=== PATIENT | male | born 1945 | race Caucasian/White ===

== ENCOUNTER → 2016-07-09 | Outpatient (CLI) | payer MEDICARE, BC ==
--- NOTE | 2016-07-09 20:24 | BD ---
EXAMINATION TYPE: MG DEXA axial skeleton. DATE OF EXAM: 07/09/2016 3:57 PM COMPARISON: NONE CLINICAL HISTORY: 70-year-old male osteoporosis Height: 131.9 Weight: 63 FRAX RISK QUESTIONS: Alcohol (3 or more units per day): NO Family History (Parent hip fracture): NO Glucocorticoids (More than 3mos): (Ex: prednisone, prednisolone, methylprednisolone, dexamethasone, and hydrocortisone). History of Fracture in Adulthood: NO Secondary Osteoporosis: 1. Type 1 Diabetes: TYPE 2 ON INSULIN 2. Hyperthyroidism: NO 3. Menopause before 45: N/A 4. Malnutrition: NO 5. Chronic liver disease: NO Rheumatoid Arthritis: NO Current Tobacco Use: NO RISK FACTORS HISTORY OF: Hip Fracture (Right/Left): NO Spine Fracture: NO History of Wrist Fracture: NO Surgery to Spine/Hip(right/left)/Wrist (right/left): BILATERAL HIPS When: L 02-17-12 RT Family History of Osteoporosis: YES Active: YES Diet low in dairy products/other sources of calcium: YES Lost more than 2 inches in height since high school: UNSURE DUE TO HIP SURGERY Frequent falls: NO Poor Health: NO Adrenal Insufficiency: NO MEDICATIONS: DIABETIC MEDS, ATORVASTATIN, CLOPIDOGREL, IMDUR, LISINOPRIL, PANTOPRAZOLE, TAMSULOSIN, F INASTERIDE Prednisone or other steroids: PREDNISONE How Lon MONTHS Additional History: EXAM MEASUREMENTS: Bone mineral densitometry was performed using the [employer] System. Bone mineral density as measured about the Lumbar spine is: ----- L1-L4(G/cm2): 0.795 T Score Values are as follows: ----- L2: -3.0 ----- L3: -3.4 ----- L4: -2.7 ----- L1-L4: -3.2 Bone mineral density has: DECREASED -1.9 % since study of: 04.14.2012 IMPRESSION: Osteoporosis (T Score less than -2.5) as noted by T Score values at the lumbar spine. There is increased fracture risk and therapy is usually indicated based on age. Re-Screen 1-2 years. NOTE: T-SCORE=SD OF THE YOUNG ADULT MEAN.
== END | disposition home or self-care (01) ==
LOC: RADBDWWP 15:34
PROVIDERS: ATTEND Family Medicine
DX: M81.0 Age-related osteoporosis without current pathological fracture (principal)
CPT/HCPCS: 77080

== ENCOUNTER 2017-06-09 18:07 | Inpatient (IN) | payer MEDICARE, BC ==
[2017-06-09 18:33] LABS: Glucose,Whole Blood 107 mg/dL (75-99)
[2017-06-09] MEDS ORDERED: HEPARIN SODIUM,PORCINE 5,000 UNIT/ML 1 ML VIAL IV PRN (19:48)
[2017-06-09] MEDS ORDERED: HEPARIN SODIUM,PORCINE 5,000 UNIT/ML 1 ML VIAL IV ONE (19:48)
[2017-06-09] MEDS ORDERED: HEPARIN SOD,PORK IN 0.45% NACL 25,000 UNIT in 0.45% NACL 1 500ML.BAG IV SCH (20:00)
[2017-06-09 20:36] LABS: Basophils % (A) 0 %; Eosinophils # (A) 0.2 k/uL (0-0.7); Eosinophils % (A) 3 %; HCT 38.1 % (39.0-53.0); HGB 12.3 gm/dL (13.0-17.5); Lymphocytes # (A) 1.4 k/uL (1.0-4.8); Lymphocytes % (A) 21 %; MCH 27.5 pg (25.0-35.0); MCHC 32.3 g/dL (31.0-37.0); Mean Platelet Volume 6.9; Monocytes # (A) 0.5 k/uL (0-1.0); Monocytes % (A) 7 %; Neutrophils # (A) 4.5 k/uL (1.3-7.7); Neutrophils % (A) 67 %; Platelet Count 205 k/uL (150-450); RBC 4.49 m/uL (4.30-5.90); RDW 13.3 % (11.5-15.5); WBC 6.8 k/uL (3.8-10.6)
[2017-06-09 20:43] LABS: INR 1.1 (<1.2); Partial Thromboplastin Time 64.4 sec (22.0-30.0); Prothrombin Time 10.4 sec (9.0-12.0)
[2017-06-09 20:49] LABS: Anion Gap 7 mmol/L; Blood Urea Nitrogen 16 mg/dL (9-20); Calcium 8.4 mg/dL (8.4-10.2); Carbon Dioxide 27 mmol/L (22-30); Chloride 95 mmol/L (98-107); Glucose 135 mg/dL (74-99); Potassium 4.2 mmol/L (3.5-5.1); Sodium 129 mmol/L (137-145)
[2017-06-09 20:55] LABS: Glucose,Whole Blood 169 mg/dL (75-99)
[2017-06-09] MEDS: ATORVASTATIN 20 MG TAB PO SCH (21:21)
[2017-06-09] MEDS: METOPROLOL TARTRATE 25 MG TAB PO SCH (21:21)
[2017-06-09] MEDS: INSULIN ASPART 100 UNIT/ML 1 ML 10 ML VIAL SQ SCH (21:27)
[2017-06-09] MEDS: PIRFENIDONE 801 MG PO SCH (21:28)
--- NOTE | 2017-06-10 00:45 | XR ---
EXAMINATION TYPE: XR chest 1V portable DATE OF EXAM: 06/10/2017 COMPARISON: NONE HISTORY: Chest pain short of breath TECHNIQUE: Single frontal view of the chest is obtained. FINDINGS: Heart is probably enlarged. There is some pulmonary vascular congestion. Pulmonary vascula rity is difficult to evaluate because of the extensive interstitial lung disease. Thoracic aorta is a theromatous. There are chest leads. There are sternal wires. IMPRESSION: Advanced foamy fibrosis without change compared to old exam. Possible mild heart failure . This is unchanged.
[2017-06-10] MEDS ORDERED: ALPRAZolam 0.25 MG TAB PO PRN (01:05)
[2017-06-10] MEDS ORDERED: NITROGLYCERIN SL TABS 0.4 MG TAB SUBLINGUAL PRN (01:05)
--- NOTE | 2017-06-10 03:26 | HP ---
HISTORY AND PHYSICAL I am covering for Dr. Hal Van. DATE OF SERVICE: 06/09/17 HISTORY OF PRESENT ILLNESS: This 71-year-old gentleman with past medical history of pulmonary fibrosis, history of CAD, diabetes and hypertension, was admitted to [facility] with complaints of chest pain to [facility], acute non ST elevation myocardial infarction was suspected and the patient was transferred to [facility] for further evaluation and possible cardiac catheterization at this time. There is no history of fever , rigors or chills. No history of headache, loss of consciousness or seizures. As mentioned, the patient also had kyphoscoliosis and as well as pulmonary fibrosis. Also the patient monitored by Dr. Handy in the outpatient setting. A chest x-ray done on admission which was reviewed personally by me showed bilateral lower lobe lesions suggestive of chronic pulmonary fibrosis, possibly. PAST MEDICAL HISTORY: History of CAD, history of diabetes mellitus, hypertension, hyperlipidemia, DJD, history of cholecystectomy, CAD, CABG stent. MEDICATIONS: Prior to admission include: 1. Lopressor 25 mg p.o. t.i.d. 2. Prednisone 10 mg. 3. Flomax 0.4 b.i.d. 5. Protonix 40 mg. 6. Nitrostat 0.4 p.r.n. 7. Multivitamins one p.o. daily. 8. Zestril 2.5 daily. 9. Imdur 30 mg. 10.NovoLog a.c. and q.h.s. 11.Lantus 19 units subcu daily. 12.Proscar 5 mg p.o. daily. 13.Plavix 75 mg p.o. daily. 14.Celexa 20 mg p.o. daily. 15.Lipitor 20 mg q.h.s. 17.Xanax 0.5 b.i.d. p.r.n. ALLERGIES: None. FAMILY HISTORY: History of CHF, diabetes in the family. SOCIAL HISTORY: No history of alcohol. Previous history of smoking. REVIEW OF SYSTEMS: ENT: No diminished vision or hearing. Cardiovascular: As mentioned earlier. Respiratory: As mentioned earlier. GI no nausea or vomiting. : No dysuria. NERVOUS SYSTEM: No numbness or weakness. Allergy/Immunology: No asthma or hayfever. Musculoskeletal as mentioned earlier. Hematology/Oncology: No history of anemia. Endocrine: Diabetes mellitus type 2. Constitutional: As mentioned earlier. Dermatology: Negative. Rheumatology: Negative. Psychiatric: As mentioned earlier. PHYSICAL EXAMINATION: Alert and oriented x3. The pulse is 81, blood pressure 109/59, respiration 18, temperature 97.2, pulse ox 94% on 4 L. HEENT: Conjunctivae normal. Oral mucosa moist. Neck is no jugular venous distention. No carotid bruit. No lymph node enlargement. Cardiovascular: S1, S2 muffled. No S3, no S4. RESPIRATORY: Breath sounds diminished in the bases. Scattered rhonchi and crackles. ABDOMEN: Soft. Otherwise chest is emphysematous. Otherwise crackles in the bilateral posterior part. Expiratory wheezing also present. Abdomen: Soft, nontender. No mass palpable. Legs: No edema and no swelling. Nervous system: Higher functions as mentioned earlier, moves all 4 limbs, no focal motor or sensory deficits. Lymphatics: No lymph nodes palpable in the neck, axillae or groin. Skin: No ulcer, rash or bleeding. LABS: At this time shows WBC of 6.9, hemoglobin 12.3 and glucose 135, sodium 129. ASSESSMENT: 1. Chest pain possible acute non ST-segment elevation myocardial infarction. 2. History of coronary artery disease, coronary artery bypass grafting, stent. 3. Pulmonary fibrosis. 4. Hyponatremia. 5. History of diabetes mellitus type 2. 6. History of gastroesophageal reflux disease. 7. Hypertension. 8. Hyperlipidemia. 9. History of prostate disorder. 10.Chronic hypoxic respiratory failure on 4 L nasal cannula. 11.History of myasthenia gravis in remission since 1982. 12.Degenerative joint disease. 13.Carotid artery disease. 14.Hyperlipidemia. 15.History of cholecystectomy. RECOMMENDATION AND DISCUSSION: In this 71-year-old gentleman who presented with multiple complex medical issues , we will monitor the patient closely. Continue the rest of the home medications. Monitor IV heparin. Cardiology consultation, possible cardiac catheterization. Otherwise, we will resume the home medications. Continue to monitor. Guarded prognosis because of multiple complex medical issues. Further recommendations to follow. MMODL / IJN: [id number] / MTDD
[2017-06-10] MEDS: SODIUM CHLORIDE 0.9% 1,000 ML IV SCH (06:13)
[2017-06-10] MEDS: METOPROLOL TARTRATE 25 MG TAB PO SCH ×3 (06:14→20:58)
[2017-06-10] MEDS: CLOPIDOGREL 75 MG TAB PO SCH (06:14)
[2017-06-10] MEDS: LISINOPRIL 2.5 MG TAB PO SCH (06:14)
[2017-06-10] MEDS: INSULIN ASPART 100 UNIT/ML 1 ML 10 ML VIAL SQ SCH ×4 (06:15→20:56)
[2017-06-10] MEDS: ASPIRIN 81 MG PO SCH (06:15)
[2017-06-10] MEDS: PANTOPRAZOLE 40 MG TABLET PO SCH (06:15)
[2017-06-10] MEDS: ATORVASTATIN 20 MG TAB PO SCH (06:15)
[2017-06-10 06:39] LABS: Glucose,Whole Blood 133 mg/dL (75-99)
[2017-06-10 06:40] LABS: Basophils % (A) 0 %; Eosinophils # (A) 0.3 k/uL (0-0.7); Eosinophils % (A) 4 %; HCT 40.3 % (39.0-53.0); HGB 13.9 gm/dL (13.0-17.5); Lymphocytes # (A) 1.5 k/uL (1.0-4.8); Lymphocytes % (A) 21 %; MCHC 34.3 g/dL (31.0-37.0); MCV 84.5 fL (80.0-100.0); Mean Platelet Volume 6.6; Monocytes # (A) 0.5 k/uL (0-1.0); Monocytes % (A) 7 %; Neutrophils # (A) 4.7 k/uL (1.3-7.7); Neutrophils % (A) 66 %; Platelet Count 242 k/uL (150-450); RBC 4.77 m/uL (4.30-5.90); WBC 7.2 k/uL (3.8-10.6)
[2017-06-10 07:03] LABS: Anion Gap 8 mmol/L; Blood Urea Nitrogen 14 mg/dL (9-20); Calcium 8.8 mg/dL (8.4-10.2); Carbon Dioxide 29 mmol/L (22-30); Chloride 99 mmol/L (98-107); Glucose 125 mg/dL (74-99); Potassium 4.8 mmol/L (3.5-5.1); Sodium 136 mmol/L (137-145)
[2017-06-10] MEDS ORDERED: LIDOCAINE 2% INJ 20 MG/ML (20 ML MDV) ONE (07:13)
[2017-06-10] MEDS ORDERED: IV FLUID CONTINUATION 400 ML IV ONE (07:20)
[2017-06-10] MEDS ORDERED: fentaNYL (PF) 50 MCG/ML 2 ML AMP ONE (07:42)
[2017-06-10] MEDS ORDERED: fentaNYL (PF) 50 MCG/ML 2 ML AMP IV ONE (07:46)
[2017-06-10] MEDS ORDERED: LIDOCAINE 2% INJ 20 MG/ML SQ ONE (07:49)
[2017-06-10] MEDS ORDERED: IOPAMIDOL-370 125ML BTL INJ ONE (08:08)
[2017-06-10] MEDS ORDERED: RX INFO: IV CONTRAST WAS GIVEN 1 EACH MISC MISCELLANE PRN (08:31)
[2017-06-10] MEDS ORDERED: SODIUM CHLORIDE 0.9% 1,000 ML IV SCH (08:45)
[2017-06-10] MEDS ORDERED: ISOSORBIDE MONONITRATE ER 30 MG TAB.ER.24H PO SCH (09:00)
--- NOTE | 2017-06-10 09:51 | CC ---
CARDIAC CATHETERIZATION REPORT Mr. Segura is a 71-year-old male with known history of hypertension, hyperlipidemia, diabetes mellitus, history of coronary artery disease, status post coronary artery bypass grafting and subsequent percutaneous revascularization with , history of pulmonary fibrosis, who presented to [facility] with symptoms of progressive dyspnea and episodes of chest discomfort with minimal elevation of troponin. In view of that and after evaluation by Dr. Fercho Campos, recommendation made regarding cardiac catheterization. The procedure as well as the risks and complications were discussed with the patient who is in full understanding and agreement. PROCEDURE: Patient was brought to the blood bank laboratory professional in the fasting semi-sedated state after receiving fentanyl and Benadryl. He was draped and prepped in conventional fashion using Xylocaine anesthesia in the Seldinger technique, a 6-Georgian sheath was introduced in the left femoral artery. Selective right and left angiography performed using a 6- Georgian 4 bend right and left America catheter. Multiple views of the coronary artery including hemiaxial view was obtained. The 6-Georgian right America catheter was used to cannulate the saphenous vein graft as well as MERAZ to LAD. Images of the grafts were obtained. Following that, a 6-Georgian tight pigtail catheter was introduced in the left ventricle and a 30- degree RIGGS view of the left ventricle was obtained. Following that, the catheter and sheaths were removed. Hemostasis was obtained with deployment of Angio-Seal. There was no immediate complication. Patient is returned to his room in stable condition. FINDINGS: FLUOROSCOPY: There is severe calcification involving all the coronary arteries. LEFT MAIN: This is a short size vessel bifurcating in left circumflex and left anterior descending artery. Left main coronary artery has no evidence of high-grade stenosis. LEFT ANTERIOR DESCENDING ARTERY: This vessel is heavily calcified, has 80% to 90% stenosis at the ostium. Subsequently is totally occluded at the takeoff of the first septal technical support engineer with no significant antegrade flow and the first diagonal branch is heavily calcified and small in caliber. It is a branching vessel that one of the branches is totally occluded. The second one has a 90% stenosis. LEFT CIRCUMFLEX: This vessel is nondominant, has a 99% stenosis at the ostium, heavily calcified throughout its course with diffuse intimal disease. The obtuse marginal branches are subtotally occluded. RIGHT CORONARY ARTERY: This vessel is totally occluded in the mid segment with no significant antegrade flow. COLLATERALS: There are small collaterals from the left coronary system toward the right PDA. MERAZ to LAD: The distal anastomotic site is patent. The flow into the LAD is brisk. There is no evidence of high-grade stenosis. SAPHENOUS VEIN GRAFT TO THE OBTUSE MARGINAL BRANCH: This graft is totally occluded proximally. SAPHENOUS VEIN GRAFT TO DIAGONAL BRANCH: This graft is totally occluded proximally. SAPHENOUS VEIN GRAFT TO THE RIGHT CORONARY ARTERY. This graft is totally occluded proximally. LEFT VENTRICULOGRAM: The left ventriculogram is performed in 30-degree RIGGS view and revealed mild mid anterior wall hypokinesis. Ejection fraction is estimated 45% to 50%. There was no significant mitral regurgitation. HEMODYNAMICS: There was no gradient across the aortic valve. The left ventricular end- diastolic pressure was 14 to 18 mmHg. CONCLUSION: 1. Heavily calcified coronary arteries. 2. Severe triple-vessel coronary artery disease. 3. Patent MERAZ to left anterior descending artery. 4. Chronic occluded saphenous vein graft to diagonal branch, obtuse marginal branch, and right coronary artery. 5. Mildly impaired left ventricular systolic function. RECOMMENDATION: In view of finding anatomy, I recommend to continue medical therapy. The patient is not a candidate for percutaneous revascularization. Those findings and recommendation were discussed with the patient and his family who are in full understanding and agreement. Duration of procedure 23 minutes. MMODL / IJN: [id number] /
--- NOTE | 2017-06-10 09:51 | LTR ---
June 10, 2017 Re: Ari Segura Dear Dr. Van: I had the opportunity to perform cardiac catheterization on Mr. Segura at [facility] on the 10 of June and a full copy of the procedure note will be forwarded to you. In brief, he was found to have severe triple-vessel coronary artery disease with severely calcified coronary arteries and a patent MERAZ to LAD with occluded saphenous vein grafts. Based on those findings, I have recommended to maximize his medical therapy and I do not feel that he is a candidate for any intervention. Thank you again for allowing me the opportunity to participate in his care. Please feel free to call for any questions. Sincerely yours, MD BRISEIDA Jacques / VERNON: [id number] /
[2017-06-10] MEDS: CITALOPRAM HYDROBROMIDE 20 MG TAB PO SCH (09:56)
[2017-06-10] MEDS: INSULIN DETEMIR 100 UNIT/ML 10 ML VIAL SQ SCH (09:56)
[2017-06-10] MEDS: FINASTERIDE 5 MG TAB PO SCH (09:56)
[2017-06-10] MEDS: PIRFENIDONE 801 MG PO SCH ×3 (09:57→20:58)
[2017-06-10] MEDS: ISOSORBIDE MONONITRATE ER 60 MG TAB.ER.24H PO SCH (09:57)
[2017-06-10] MEDS: predniSONE 10 MG TAB PO SCH (09:58)
[2017-06-10] MEDS: TAMSULOSIN 0.4 MG CAP.ER.24H PO SCH ×2 (09:59→20:56)
[2017-06-10] MEDS ORDERED: ACETAMINOPHEN TAB 325 MG TAB PO PRN (11:40)
[2017-06-10 11:49] LABS: Glucose,Whole Blood 212 mg/dL (75-99)
[2017-06-10] MEDS ORDERED: MULTIVITAMINS, THERA 1 EACH TAB PO SCH (12:00)
--- NOTE | 2017-06-10 15:30 | P.CNPUL ---
History of Present Illness Consult date: 06/10/17 Reason for consult: dyspnea, pulmonary fibrosis History of present illness: 71-year-old male patient with known history of IPF maintained on Esbriet therapy initiated in September 2014. The patient has been developing progressive loss in his lung capacity over the years and he is been experiencing exertional dyspnea and cough. The patient sees me on a regular basis in the office. The patient was last hospitalized in middle of February for an acute pulmonary fibrosis exacerbation he was treated with systemic steroids and he was discharged home. Note that he has developed a drop in his FVC in January 2017 which is down to 42% of predicted. He is on oxygen therapy at all times at 4 L a minute nasal cannula. He has exertional dyspnea and he desaturates easily and it's taking longer time for him to recover from his oxygen desaturations. He has chronic hypoxic respiratory failure. He also has coronary artery disease and he is undergone previous coronary artery bypass surgery. He is diabetic. He presented to [facility] because of worsening shortness of breath and chest pain. The patient ruled in for acute non-ST segment elevation myocardial infarction. He got transferred to [facility] where he underwent a cardiac catheterization and he was found to have heavily calcified coronary arteries, severe triple-vessel coronary artery disease, patent MERAZ to LAD, chronically occluded saphenous vein graft to diagonal branch, O2 is marginal branch and right coronary artery. His left a ejection fraction has been preserved based on physical cardiac grams. The patient is currently free of any chest pain. Chest x-rays consistent with IPF. No sputum production. No hemoptysis been no swelling lower extremities. Review of Systems Constitutional: Reports fatigue, Reports weakness Eyes: denies blurred vision, denies bulging eye, denies decreased vision Ears: deny: decreased hearing, ear discharge, earache, tinnitus Ears, nose, mouth and throat: Denies headache, Denies sore throat Cardiovascular: Reports decreased exercise tolerance, Reports shortness of breath Respiratory: Reports cough, Reports dyspnea, Reports home oxygen Gastrointestinal: Denies abdominal pain, Denies diarrhea, Denies nausea, Denies vomiting Genitourinary: Reports as per HPI Musculoskeletal: Denies myalgias Musculoskeletal: absent: ankle pain, ankle stiffness, ankle swelling Integumentary: Denies pruritus, Denies rash Neurological: Denies numbness, Denies weakness Psychiatric: Denies anxiety, Denies depression Endocrine: Reports as per HPI, Reports fatigue Hematologic/Lymphatic: Reports as per HPI Allergic/Immunologic: Reports as per HPI Past Medical History Past Medical History: Coronary Artery Disease (CAD), Chest Pain / Angina, Diabetes Mellitus, GERD/Reflux, Hyperlipidemia, Hypertension, Prostate Disorder Additional Past Medical History / Comment(s): IPF maintained on Esbriet, chronic hypoxic respiratory failure, coronary artery disease with previous bypass surgery and the patient got transferred from [facility] for an acute non-ST segment elevation myocardial infarction, 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, prostate cancer, right carotid artery stenosis, diabetes mellitus, compression fracture of the thoracic spine, myasthenia gravis in remission since 1982, chronic back pain, chronic hip pain, osteoporosis, hyperlipidemia History of Any Multi-Drug Resistant Organisms: None Reported Past Surgical History: Cholecystectomy, Coronary Bypass/CABG, Heart Catheterization With Stent, Tonsillectomy Additional Past Surgical History / Comment(s): CABG [address] [facility], heart cath/stent to rca 2012 and feb 2015 heart cath stent to distal LAD total of 12 sx on evans hips (4 replacments and reconstructions), thymus removed, evans cataracts Additional Past Anesthesia/Blood Transfusion Reaction / Comment(s): past blood transfusion 1982-no reaction Date of Last Stent Placement:: Smoking Status: Former smoker - Past Family History Mother Family Medical History: Congestive Heart Failure (CHF), Diabetes Mellitus Additional Family Medical History / Comment(s): pts maternal grandmother had dm Father Family Medical History: Cancer Additional Family Medical History / Comment(s): lung cancer Sister(s) Family Medical History: Diabetes Mellitus Medications and Allergies Home Medications Medication Instructions Recorded Confirmed Type Clopidogrel [Plavix] 75 mg PO DAILY 05/31/15 06/09/17 History Lisinopril [Zestril] 2.5 mg PO DAILY 05/31/15 06/09/17 History Pantoprazole [Protonix] 40 mg PO DAILY 05/31/15 06/09/17 History Pirfenidone [Esbriet] 801 mg PO TID 05/31/15 06/09/17 History Tamsulosin HCl [Flomax] 0.4 mg PO BID 05/31/15 06/09/17 History Aspirin EC [Ecotrin Low Dose] 81 mg PO DAILY #30 tablet. 06/02/15 06/09/17 Rx Isosorbide Mononitrate ER [Imdur] 30 mg PO DAILY #30 tab.er.24h 06/02/15 Rx Metoprolol Tartrate [Lopressor] 25 mg PO TID #90 tab 06/02/15 06/10/17 Rx Nitroglycerin Sl Tabs [Nitrostat] 0.4 mg SUBLINGUAL Q5M PRN #20 tab 06/02/15 Rx Finasteride [Proscar] 5 mg PO DAILY 12/24/16 06/09/17 History Insulin Aspart [NovoLOG Flexpen] See Protocol SQ ACHS 12/24/16 06/09/17 History Insulin Glargine,Hum.rec.anlog 19 unit SQ DAILY 12/24/16 06/09/17 History [Lantus Solostar] Multivitamins, Thera [Multivitamin 1 tab PO DAILY 12/24/16 06/09/17 History (formulary)] predniSONE 10 mg PO DAILY 12/24/16 06/09/17 History ALPRAZolam [Xanax] 0.25 mg PO BID PRN 06/09/17 06/09/17 History Atorvastatin [Lipitor] 20 mg PO HS 06/09/17 06/09/17 History Citalopram Hydrobromide [CeleXA] 20 mg PO DAILY 06/09/17 06/09/17 History Allergies Allergy/AdvReac Type Severity Reaction Status Date / Time No Known Allergies Allergy Verified 06/09/17 18:37 Physical Exam Vitals: Vital Signs Temp Pulse Pulse Resp BP Pulse Ox 06/10/17 11:16 95.8 F L 71 22 91/55 96 06/10/17 10:16 97.0 F L 70 18 95/50 98 06/10/17 09:16 98.1 F 72 20 116/57 96 06/10/17 09:01 97.7 F 60 20 103/54 95 06/10/17 08:46 97.7 F 68 18 127/67 95 06/10/17 08:40 14 116/58 96 06/10/17 06:19 74 133/64 06/10/17 04:02 97.1 F L 69 18 115/56 93 L 06/10/17 00:00 81 16 92/54 95 06/09/17 20:00 97.3 F L 81 18 109/59 94 L 06/09/17 18:42 97.0 F L 78 18 91/50 95 Intake and Output 06/10/17 06/10/17 06/10/17 06:59 14:59 22:59 Intake Total 80 390 Output Total 800 Balance -720 390 Intake: IV 150 Intake, IV Titration 80 Amount Sodium Chloride 0.9% 1, 80 000 ml @ 40 mls/hr IV . Q24H [facility] Rx#:[id number] Oral 240 Output: Urine 800 Other: Voiding Method Urinal Weight 59.5 kg Results General Appearance no diaphoresis, no respiratory distress, speech not interrupted by breaths, no dyspnea, no pallor, not cachectic, well nourished, appears well HEENT no pursed lip breathing, no jugular venous distention, no mucous membrane cyanosis, no perioral cyanosis, mallampati classification: class 1 Chest no barrel chest, no retractions, no sternocleidomastoid muscle contractions, no supraclavicular retractions, no intercostal retractions, no prolonged expiratory wheezing, no decreased air movement, no rhonchi, no hyperinflation, decreased air movement (coarse crackles at lung bases bilaterally) Heart no right ventricular heave, no distant heart sounds, no s3 gallop ( sternotomy scar over the anterior chest) GI bowel sounds: hyperactive (borborygmi), bowel sounds: diminished or absent Extremities no cyanosis, no clubbing, no edema Neurologic no decreased mental status, no somnolence, no confusion Skin General Appearance normal, (normal) normal except as noted - Laboratory Findings CBC and BMP: 06/10/17 06:24 06/10/17 06:24 PT/INR, D-dimer PT 10.4 sec (9.0-12.0) 06/09/17 20:12 INR 1.1 (<1.2) 06/09/17 20:12 Abnormal lab findings: Abnormal Labs 06/09/17 06/09/17 06/09/17 18:31 20:12 20:12 Hgb 12.3 L Hct 38.1 L APTT 64.4 H Sodium Chloride Glucose POC Glucose (mg/dL) 107 H Troponin I 06/09/17 06/09/17 06/10/17 20:17 20:52 02:20 Hgb Hct APTT 51.7 H Sodium 129 L Chloride 95 L Glucose 135 H POC Glucose (mg/dL) 169 H Troponin I 06/10/17 06/10/17 06/10/17 06:24 06:24 06:34 Hgb Hct APTT Sodium 136 L Chloride Glucose 125 H POC Glucose (mg/dL) 133 H Troponin I 0.062 H* 06/10/17 11:40 Hgb Hct APTT Sodium Chloride Glucose POC Glucose (mg/dL) 212 H Troponin I - Diagnostic Findings Chest x-ray: image reviewed Assessment and Plan Plan: Assessment 1 acute non-ST segment elevation myocardial infarction with secondary chest pain and shortness of breath 2 coronary artery disease with severe triple-vessel involvement. The patient is status post bypass surgery. The patient is a patent MERAZ to LAD and the rest of the saphenous vein grafts are all occluded. His condition be offered medical management only 3 IPF 4 traction bronchiectasis secondary to IPF 5 diabetes mellitus 6 hypertension 7 hyperlipidemia 8 prostate cancer 9 chronic cough secondary to IPF 10 chronic hypoxic history failure secondary to IPF 11 compression fractures of the T12 spine with chronic back pain 12 osteoporosis 15 osteoarthritis Plan Results of the cardiac catheterization was noted. Proceed with medical treatment. No coronary interventions at this point. In terms of the IPF, the patient is being closely monitored. FVC is in order of 42% of predicted. Continue oxygen therapy between 4-5 L of oxygen nasal cannula. Continue Esbriet treatment. Continue low-dose steroids. Continue following up this patient the patient would like to get discharged first thing in the morning if his condition remains stable.
[2017-06-10 16:53] LABS: Glucose,Whole Blood 130 mg/dL (75-99)
[2017-06-10 20:48] LABS: Glucose,Whole Blood 249 mg/dL (75-99)
[2017-06-10] MEDS ORDERED: ATORVASTATIN 40 MG TAB PO SCH (21:00)
[2017-06-11] MEDS: SODIUM CHLORIDE 0.9% 1,000 ML IV SCH (01:49)
[2017-06-11 05:51] LABS: Glucose,Whole Blood 106 mg/dL (75-99)
[2017-06-11] MEDS: INSULIN ASPART 100 UNIT/ML 1 ML 10 ML VIAL SQ SCH (05:54)
[2017-06-11] MEDS: PANTOPRAZOLE 40 MG TABLET PO SCH (06:35)
[2017-06-11 06:46] LABS: Basophils % (A) 0 %; Eosinophils # (A) 0.2 k/uL (0-0.7); Eosinophils % (A) 3 %; HCT 38.4 % (39.0-53.0); HGB 13.3 gm/dL (13.0-17.5); Lymphocytes # (A) 1.6 k/uL (1.0-4.8); Lymphocytes % (A) 22 %; MCH 29.1 pg (25.0-35.0); MCHC 34.6 g/dL (31.0-37.0); Mean Platelet Volume 6.7; Monocytes # (A) 0.5 k/uL (0-1.0); Monocytes % (A) 6 %; Neutrophils % (A) 66 %; Platelet Count 253 k/uL (150-450); RBC 4.58 m/uL (4.30-5.90); WBC 7.5 k/uL (3.8-10.6)
[2017-06-11 06:57] LABS: Anion Gap 10 mmol/L; Blood Urea Nitrogen 14 mg/dL (9-20); Carbon Dioxide 27 mmol/L (22-30); Chloride 97 mmol/L (98-107); Glucose 86 mg/dL (74-99); Potassium 4.3 mmol/L (3.5-5.1); Sodium 134 mmol/L (137-145)
[2017-06-11 07:46] VITALS: PULSE 81
--- NOTE | 2017-06-11 08:49 | PN ---
PROGRESS NOTE Mr. Segura is a 71-year-old male with a history of coronary artery disease status post bypass grafting, history of pulmonary fibrosis, who presented with symptoms of progressive dyspnea and minimal elevation of troponin. Was transferred from [facility], underwent cardiac catheterization yesterday, was found to have severe triple-vessel coronary disease with patent MERAZ to LAD and occluded saphenous vein graft. He is doing well this morning. He denies any chest pain. His breathing has been unchanged. He has chronic dyspnea on exertion because of the pulmonary fibrosis. He denies any dizziness or palpitation. He denies any nausea. He continues to be at this time on aspirin once a day, Lipitor 40 mg daily, Plavix 75 mg daily, Proscar 5 mg daily, isosorbide mononitrate 60 mg daily, lisinopril 2.5 mg daily, and metoprolol tartrate 25 mg 3 times a day in addition to prednisone, and Flomax. PHYSICAL EXAMINATION: Blood pressure 138/60 with a heart in the 60s. LUNGS: With decreased breath sounds, but no wheezes. HEART: Regular rate and rhythm. S1, S2. No S3 with systolic murmur. No diastolic murmur. ABDOMEN: Soft, nontender. Left groin, no hematoma. EXTREMITIES: No edema. LAB DATA: BUN and creatinine 14.7, hemoglobin 13.3, potassium 4.3. IMPRESSION: 1. Severe triple-vessel coronary artery disease with patent MERAZ to LAD and occluded saphenous vein graft. 2. History of coronary artery bypass grafting. 3. History of pulmonary fibrosis. RECOMMENDATION: From the cardiac standpoint, his activity level will be increased. I would expect he should be able to be discharged home soon and followed as an outpatient. MMODL / IJN: [id number] /
[2017-06-11] MEDS: ASPIRIN 81 MG PO SCH (09:46)
[2017-06-11] MEDS: CITALOPRAM HYDROBROMIDE 20 MG TAB PO SCH (09:47)
[2017-06-11] MEDS: CLOPIDOGREL 75 MG TAB PO SCH (09:47)
[2017-06-11] MEDS: FINASTERIDE 5 MG TAB PO SCH (09:48)
[2017-06-11] MEDS: INSULIN DETEMIR 100 UNIT/ML 10 ML VIAL SQ SCH (09:48)
[2017-06-11] MEDS: ISOSORBIDE MONONITRATE ER 60 MG TAB.ER.24H PO SCH (09:48)
[2017-06-11] MEDS: METOPROLOL TARTRATE 25 MG TAB PO SCH (09:49)
[2017-06-11] MEDS: LISINOPRIL 2.5 MG TAB PO SCH (09:49)
[2017-06-11] MEDS: TAMSULOSIN 0.4 MG CAP.ER.24H PO SCH (09:50)
[2017-06-11] MEDS: PIRFENIDONE 801 MG PO SCH (09:50)
[2017-06-11] MEDS: predniSONE 10 MG TAB PO SCH (09:50)
[2017-06-11 11:20] VITALS: BP 112/55; RESP 19; TEMP 97.2
[2017-06-11 11:47] LABS: Glucose,Whole Blood 263 mg/dL (75-99)
--- NOTE | 2017-06-11 12:19 | P.PN ---
Subjective Progress Note Date: 06/11/17 Principal diagnosis: Chest pain This is a 71-year-old gentleman with history of hypertension, hyperlipidemia, diabetes, history of coronary artery disease with prior bypass surgery and PCI, pulmonary fibrosis, who [facility] with symptoms of chest discomfort with associated dyspnea. He was noted there to have mild abnormality in his troponin and was recommended to undergo cardiac catheterization, hence the patient was discharged here. He underwent a cardiac catheterization by Dr. Olguin yesterday which revealed heavily calcified coronary arteries, severe triple-vessel coronary artery disease, patent MERAZ to the LAD, chronically occluded saphenous vein graft to the diagonal branch, obtuse marginal branch, and right coronary artery. Mildly impaired left ventricular systolic function. In view of the findings, Dr. Olguin had recommended to continue medical therapy. Patient was felt not to be a candidate for percutaneous revascularization. He was seen and examined this morning, denied any chest discomfort, breathing is stable. Blood pressure 112/ 56 with a heart rate in the 60s to 70s, 97% on 4 L of oxygen. White blood cell count 7.5, hemoglobin 13.3, platelet count 253. Sodium 134, potassium 4.3, BUN 14, creatinine 0.7. Objective - Vital Signs Vital signs: Vital Signs Temp 97.2 F L 06/11/17 11:18 Pulse 81 06/11/17 07:43 Resp 19 06/11/17 11:18 BP 112/55 06/11/17 11:18 Pulse Ox 97 06/11/17 11:18 Intake & Output 06/10/17 06/11/17 06/11/17 18:59 06:59 18:59 Intake Total 2370 310 360 Output Total 1700 550 Balance 670 -240 360 Weight 60.1 kg Intake: IV 150 Intake, IV Titration 900 10 Amount Sodium Chloride 0.9% 1, 900 10 000 ml @ 100 mls/hr IV . Q10H [facility] Rx#:[id number] Oral 1320 300 360 Output: Urine 1700 550 Other: Voiding Method Urinal Urinal - Exam PHYSICAL EXAMINATION: HEENT: Head is atraumatic, normocephalic. Pupils equal, round. Neck is supple. There is no elevated jugular venous pressure. HEART EXAMINATION: Heart S1 S2 1 systolic murmur is heard. CHEST EXAMINATION: Lungs reveal coarse rales bilaterally ABDOMEN: Soft, nontender. Bowel sounds are heard. No organomegaly noted. Left groin soft, no evidence of any hematoma. EXTREMITIES: 2+ peripheral pulses with no evidence of peripheral edema and no calf tenderness noted. NEUROLOGIC patient is awake, alert and oriented -3. . - Labs CBC & Chem 7: 06/11/17 06:16 06/11/17 06:16 Labs: Abnormal Lab Results - Last 24 Hours (Table) 06/10/17 06/10/17 06/11/17 Range/Units 16:35 20:47 05:50 Hct (39.0-53.0) % Sodium (137-145) mmol/L Chloride (98-107) mmol/L POC Glucose (mg/dL) 130 H 249 H 106 H (75-99) mg/dL 06/11/17 06/11/17 06/11/17 Range/Units 06:16 06:16 11:27 Hct 38.4 L (39.0-53.0) % Sodium 134 L (137-145) mmol/L Chloride 97 L (98-107) mmol/L POC Glucose (mg/dL) 263 H (75-99) mg/dL Assessment and Plan Plan: Assessment and plan #1 chest pain, status post cardiac catheterization which revealed severe triple- vessel coronary artery disease with patent MERAZ to the LAD and occluded saphenous vein graft. Medical therapy was advised. #2 coronary artery disease with prior bypass surgery #3 hyperlipidemia #4 pulmonary fibrosis #5 hypertension #6 diabetes Plan From cardiology's perspective, patient may be able to be discharged home today. We will make him a follow-up appointment in the office to see Dr. Olguin post discharge. He will be discharged home on aspirin 81 mg daily, Lipitor 40 mg daily, Plavix 75 mg daily, Imdur 60 mg daily, lisinopril 2-1/2 mg daily, metoprolol 25 mg one tablet by mouth 3 times a day, sublingual nitroglycerin as needed for chest pain. DNP note has been reviewed, I agree with a documented findings and plan of care. Patient was seen and examined.
--- NOTE | 2017-06-11 14:57 | P.PN ---
Subjective Progress Note Date: 06/10/17 Progress Note being dictated for Dr. Moreno. Interval history: This is a 71-year-old gentleman admitted with chest pain, acute non-STEMI and multiple other medical issues. Evaluated by cardiology, underwent cardiac catheterization reporting severe triple vessel disease, patent MERAZ to the LAD with saphenous vein grafts occluded. Per cardiology patient is not a candidate for intervention and maximizing medical therapy advised. Telemetry sinus rhythm, depressed ST. Denies chest pain, palpitations or increasing shortness of breath. Objective - Vital Signs Vital signs: Vital Signs Temp 97.1 F L 06/10/17 15:50 Pulse 76 06/10/17 15:50 Resp 18 06/10/17 15:50 BP 96/54 06/10/17 15:50 Pulse Ox 94 L 06/10/17 15:50 Intake & Output 06/10/17 06/10/17 06/11/17 06:59 18:59 06:59 Intake Total 80 2370 Output Total 800 1700 Balance -720 670 Weight 59.5 kg Intake: IV 150 Intake, IV Titration 80 900 Amount Sodium Chloride 0.9% 1, 900 000 ml @ 100 mls/hr IV . Q10H [facility] Rx#:[id number] Sodium Chloride 0.9% 1, 80 000 ml @ 40 mls/hr IV . Q24H [facility] Rx#:[id number] Oral 1320 Output: Urine 800 1700 Other: Voiding Method Urinal Urinal - Exam PHYSICAL EXAM: VITAL SIGNS: As above GENERAL: Sitting up in bed, no acute distress HEENT: Conjunctivae normal. eyes normal. Oral mucosa 1 NECK: No JVD. No thyroid enlargement. No LNs CARDIOVASCULAR: S1, S2 muffled. No murmur RESPIRATION: Breath sounds diminished in the bases. No rhonchi, bibasilar crackles. Occasional expiratory wheezing ABDOMEN: Soft, nontender . No guarding. no masses palpable. Bowel sounds heard. LEGS: No edema. no swelling PSYCHIATRY: Alert and oriented -3, mood and affect normal. NERVOUS SYSTEM: Cranial N 2-12 grossly normal. Moves all 4 limbs. Diffuse weakness No focal deficits. Skin: no ulcer no rash - Labs CBC & Chem 7: 06/11/17 06:16 06/11/17 06:16 Labs: Abnormal Lab Results - Last 24 Hours (Table) 06/09/17 06/10/1718 Range/Units 20:52 02:20 06:24 APTT 51.7 H (22.0-30.0) sec Sodium 136 L (137-145) mmol/L Glucose 125 H (74-99) mg/dL POC Glucose (mg/dL) 169 H (75-99) mg/dL Troponin I (0.000-0.034) ng/mL 06/10/17 06/10/17 06/10/17 Range/Units 06:24 06:34 11:40 APTT (22.0-30.0) sec Sodium (137-145) mmol/L Glucose (74-99) mg/dL POC Glucose (mg/dL) 133 H 212 H (75-99) mg/dL Troponin I 0.062 H* (0.000-0.034) ng/mL 06/10/17 06/10/17 Range/Units 16:35 20:47 APTT (22.0-30.0) sec Sodium (137-145) mmol/L Glucose (74-99) mg/dL POC Glucose (mg/dL) 130 H 249 H (75-99) mg/dL Troponin I (0.000-0.034) ng/mL Assessment and Plan Assessment: 1. Chest pain, acute non-STEMI 2. CAD, history of CABG, stent 3. Pulmonary fibrosis 4. Hyponatremia 5. Diabetes mellitus type 2 6. Gastroesophageal reflux disease 7. Hypertension 8. Hyperlipidemia 9. Chronic hypoxic respiratory failure on 4 L nasal cannula 10. History of myasthenia gravis in remission since 1982 11. Degenerative joint disease 12. Hyperlipidemia Plan: Continue on current medication regime ,monitoring and symptomatic treatment. Maximizing medical therapy as per cardiology. Continue on low-dose steroids.Increase ambulation as tolerated. Discharge planning in progress for tomorrow. The impression and plan of care has been dictated as directed. : I performed a history and examination of this patient, discussed the same with the dictator. I agree with the dictator's note ,documented as a scribe. Any additional findings or plans will be noted.
--- NOTE | 2017-06-11 15:03 | P.PN ---
Subjective Progress Note Date: 06/11/17 On 06/11/2018 I'm seeing today for a follow-up. He is looking well. No chest pain. He has chronic exertional dyspnea secondary to his IPF. Still on oxygen 4 L of oxygen by nasal cannula. No new complaints of any sort. No nausea. No vomiting for now altered mentation. No hemoptysis. No pleurisy. He has coarse crackles in lung bases related to pulmonary fibrosis. No other significant events otherwise. Discussed the case with cardiology and the patient may potentially go home today. Objective - Vital Signs Vital signs: Vital Signs Temp 97.2 F L 06/11/17 11:18 Pulse 81 06/11/17 07:43 Resp 19 06/11/17 11:18 BP 112/55 06/11/17 11:18 Pulse Ox 97 06/11/17 11:18 Intake & Output 06/10/17 06/11/17 06/11/17 18:59 06:59 18:59 Intake Total 2370 310 720 Output Total 1700 550 Balance 670 -240 720 Weight 60.1 kg Intake: IV 150 Intake, IV Titration 900 10 Amount Sodium Chloride 0.9% 1, 900 10 000 ml @ 100 mls/hr IV . Q10H [facility] Rx#:[id number] Oral 1320 300 720 Output: Urine 1700 550 Other: Voiding Method Urinal Urinal Toilet Urinal # Voids 1 - Exam General Appearance no diaphoresis, no respiratory distress, speech not interrupted by breaths, no dyspnea, no pallor, not cachectic, well nourished, appears well HEENT no pursed lip breathing, no jugular venous distention, no mucous membrane cyanosis, no perioral cyanosis, mallampati classification: class 1 Chest no barrel chest, no retractions, no sternocleidomastoid muscle contractions, no supraclavicular retractions, no intercostal retractions, no prolonged expiratory wheezing, no decreased air movement, no rhonchi, no hyperinflation, decreased air movement (coarse crackles at lung bases bilaterally) Heart no right ventricular heave, no distant heart sounds, no s3 gallop ( sternotomy scar over the anterior chest) GI bowel sounds: hyperactive (borborygmi), bowel sounds: diminished or absent Extremities no cyanosis, no clubbing, no edema Neurologic no decreased mental status, no somnolence, no confusion - Labs CBC & Chem 7: 06/11/17 06:16 06/11/17 06:16 Labs: Abnormal Lab Results - Last 24 Hours (Table) 06/10/17 06/10/17 06/11/17 Range/Units 16:35 20:47 05:50 Hct (39.0-53.0) % Sodium (137-145) mmol/L Chloride (98-107) mmol/L POC Glucose (mg/dL) 130 H 249 H 106 H (75-99) mg/dL 06/11/17 06/11/17 06/11/17 Range/Units 06:16 06:16 11:27 Hct 38.4 L (39.0-53.0) % Sodium 134 L (137-145) mmol/L Chloride 97 L (98-107) mmol/L POC Glucose (mg/dL) 263 H (75-99) mg/dL Assessment and Plan Plan: Assessment 1 acute non-ST segment elevation myocardial infarction with secondary chest pain and shortness of breath, improved 2 coronary artery disease with severe triple-vessel involvement. The patient is status post bypass surgery. The patient is a patent MERAZ to LAD and the rest of the saphenous vein grafts are all occluded. 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 From the pulmonary standpoint, continue the regular medication including the Esbriet, oxygen, albuterol solution, antitussive medication and prednisone 10 mg by mouth daily.
--- NOTE | 2017-06-11 22:28 | DS ---
DISCHARGE SUMMARY FINAL DIAGNOSES: 1. Chest pain, possible acute hce-OZ-aamsips-elevation myocardial infarction. 2. Coronary artery disease, coronary artery bypass grafting and stent history. 3. History of pulmonary fibrosis. 4. Hyponatremia. 5. Diabetes mellitus, type 2. 6. Gastroesophageal reflux disease. 7. Hypertension. 8. Hyperlipidemia. 9. Chronic hypoxic respiratory failure. 10.History of myasthenia gravis, in remission since 1982. 11.Degenerative joint disease. 12.Status post cardiac catheterization and severe triple-vessel disease. DISCHARGE DISPOSITION: The patient will be discharged in stable condition with guarded prognosis. HISTORY OF PRESENT ILLNESS: This 71-year-old gentleman with a past medical history of multiple medical problems was admitted with chest pain. Patient had a cardiac catheterization which showed severe triple-vessel disease. Medical therapy is advised at this time. The patient was monitored closely. Cardiology and Pulmonology saw the patient. On exam, vitals are stable. CARDIOVASCULAR SYSTEM: S1, S2 muffled. ABDOMEN: Soft. NERVOUS SYSTEM: No focal deficit. DISCHARGE ADVICE AND MEDICATIONS: 1. Diet is cardiac. 2. Activity limited until followup. 3. Follow up with Dr. Van in 2 to 3 days. 4. Follow up with Dr. Handy as advised. 5. Follow up with Cardiology as recommended. 6. Tylenol 650 q.4 p.r.n. 7. Xanax 0.25 b.i.d. 8. Ecotrin 81 mg daily. 9. Lipitor 40 mg at bedtime. 10.Celexa 20 mg p.o. daily. 11.Plavix 75 mg p.o. daily. 12.Proscar 5 mg p.o. daily. 13.NovoLog FlexPen as before. 14.Lantus 19 units subcutaneously daily. 15.Imdur ER 60 mg p.o. daily. 16.Zestril 2.5 mg daily. 17.Lopressor 25 mg p.o. t.i.d. 18.Multivitamins 1 p.o. daily. 19.Nitrostat 0.4 sublingually p.r.n. 20.Protonix 40 mg p.o. daily. 21.Esbriet 801 mg p.o. t.i.d. 22.Prednisone 10 mg p.o. daily. 23.Flomax 0.4 b.i.d. 24.Follow-up labs. MMODL / IJN: [id number] /
== END 2017-06-11 13:50 | disposition home or self-care (01) | DRG 281 ==
LOC: 6SEL 18:07
PROVIDERS: ADMIT Internal Medicine; ATTEND Internal Medicine
PROC: 4A023N7 Measurement of Cardiac Sampling and Pressure, Left Heart, Percutaneous Approach (ICD-10-PCS; principal; 2017-06-09)
PROC: B2111ZZ Fluoroscopy of Multiple Coronary Arteries using Low Osmolar Contrast (ICD-10-PCS; principal; 2017-06-09)
PROC: B2131ZZ Fluoroscopy of Multiple Coronary Artery Bypass Grafts using Low Osmolar Contrast (ICD-10-PCS; principal; 2017-06-09)
PROC: B2151ZZ Fluoroscopy of Left Heart using Low Osmolar Contrast (ICD-10-PCS; principal; 2017-06-09)
DX: I21.4 Non-ST elevation (NSTEMI) myocardial infarction (principal); E87.1 Hypo-osmolality and hyponatremia; J96.11 Chronic respiratory failure with hypoxia; G70.00 Myasthenia gravis without (acute) exacerbation; I25.810 Atherosclerosis of coronary artery bypass graft(s) without angina pectoris; M41.9 Scoliosis, unspecified; M48.54XA Collapsed vertebra, not elsewhere classified, thoracic region, initial encounter for fracture; C61 Malignant neoplasm of prostate; E11.9 Type 2 diabetes mellitus without complications; I25.10 Atherosclerotic heart disease of native coronary artery without angina pectoris; E78.5 Hyperlipidemia, unspecified; G89.29 Other chronic pain; I10 Essential (primary) hypertension; J84.10 Pulmonary fibrosis, unspecified; K21.9 Gastro-esophageal reflux disease without esophagitis; M19.90 Unspecified osteoarthritis, unspecified site; J47.9 Bronchiectasis, uncomplicated; M81.0 Age-related osteoporosis without current pathological fracture; I65.29 Occlusion and stenosis of unspecified carotid artery; Z79.02 Long term (current) use of antithrombotics/antiplatelets; Z79.899 Other long term (current) drug therapy; Z80.1 Family history of malignant neoplasm of trachea, bronchus and lung; Z82.49 Family history of ischemic heart disease and other diseases of the circulatory system; Z83.3 Family history of diabetes mellitus; Z87.891 Personal history of nicotine dependence; Z90.49 Acquired absence of other specified parts of digestive tract; Z95.5 Presence of coronary angioplasty implant and graft; Z79.4 Long term (current) use of insulin; Z79.52 Long term (current) use of systemic steroids
CPT/HCPCS: 71045; 80048; 84484; 85025; 85610; 85730; 93459

== ENCOUNTER 2017-07-08 16:06 | Emergency (ER) | payer MEDICARE, BC ==
[2017-07-08] MEDS ORDERED: NOREPINEPHRIN 4 MG-0.9% NS PMX 4 MG/250 ML ML IV ONE (16:13)
[2017-07-08] MEDS ORDERED: SODIUM CHLORIDE 0.9% 1,000 ML IV STA ×2 (16:13)
[2017-07-08] MEDS ORDERED: NOREPINEPHRIN 16 MG-0.9%NS PMX 16 MG/250 ML ML IV ONE (16:13)
[2017-07-08 16:30] LABS: Glucose,Whole Blood 297 mg/dL (75-99)
[2017-07-08 16:48] LABS: Appearance,Urine Clear (Clear); Bilirubin,Urine Negative (Negative); Blood,Urine Moderate (Negative); Color,Urine Yellow; Glucose,Urine (UA) 4+ (Negative); Ketones,Urine Negative (Negative); Leukocyte Esterase,Urine Negative (Negative); Mucus,Urine Rare /hpf; Nitrite,Urine Negative (Negative); Protein,Urine Negative (Negative); RBC,Urine >182 /hpf (0-5); Specific Gravity,Urine 1.016 (1.001-1.035); Squamous Epithelial Cell,Urine <1 /hpf (0-4); Urobilinogen,Urine <2.0 mg/dL (<2.0); WBC,Urine 9 /hpf (0-5)
[2017-07-08 16:52] LABS: Basophils # (A) 0.1 k/uL (0-0.2); Basophils % (A) 1 %; Eosinophils # (A) 0.1 k/uL (0-0.7); Eosinophils % (A) 1 %; HCT 43.8 % (39.0-53.0); HGB 13.4 gm/dL (13.0-17.5); Hypochromasia Moderate; Lymphocytes # (A) 4.4 k/uL (1.0-4.8); Lymphocytes % (A) 39 %; MCHC 30.6 g/dL (31.0-37.0); Mean Platelet Volume 7.5; Monocytes # (A) 0.4 k/uL (0-1.0); Monocytes % (A) 4 %; Neutrophils # (A) 6.3 k/uL (1.3-7.7); Neutrophils % (A) 55 %; Platelet Count 206 k/uL (150-450); RBC 4.61 m/uL (4.30-5.90); RDW 13.5 % (11.5-15.5); WBC 11.5 k/uL (3.8-10.6)
[2017-07-08 16:53] LABS: Albumin 2.9 g/dL (3.5-5.0); Calcium 8.3 mg/dL (8.4-10.2); Magnesium 2.4 mg/dL (1.6-2.3); Potassium 4.6 mmol/L (3.5-5.1); Total Bilirubin 0.3 mg/dL (0.2-1.3); Total Protein 4.8 g/dL (6.3-8.2)
[2017-07-08 16:55] LABS: VBG PH 6.9 (7.31-7.41)
[2017-07-08 17:02] LABS: INR 1.2 (<1.2); Partial Thromboplastin Time 31.1 sec (22.0-30.0); Prothrombin Time 11.4 sec (9.0-12.0)
[2017-07-08 17:03] LABS: Phosphorus 10.3 mg/dL (2.5-4.5)
[2017-07-08 17:05] LABS: D-Dimer 26.22 mg/L FEU (<0.60)
[2017-07-08 17:06] VITALS: TEMP 97
[2017-07-08] MEDS ORDERED: methylPREDNISolone SOD SUCCI 125 MG/2 ML VIAL IV STA (17:19)
[2017-07-08 17:24] LABS: Creatine Kinase MB 1.3 ng/mL (0.0-2.4); Troponin I 0.017 ng/mL (0.000-0.034)
--- NOTE | 2017-07-08 17:52 | XR ---
EXAMINATION TYPE: XR chest 1V portable DATE OF EXAM: 07/08/2017 COMPARISON: 06/10/2017 HISTORY: Line placement TECHNIQUE: Single frontal view of the chest is obtained. FINDINGS: Endotracheal tube is 1 cm from the joe. There is a nasogastric tube that appears in goo d position. There is pulmonary edema. There are chest leads. There is no sign of a pneumothorax. IMPRESSION: There is congestive heart failure that is worse than last exam. Consider also RDS. Pulmo nary edema. Endotracheal tube is low and should be pulled back 3 cm.
--- NOTE | 2017-07-08 18:44 | ED ---
General Adult HPI - General Chief complaint: Cardiac Arrest/CPR Stated complaint: Cardiac Arrest Time Seen by Provider: 07/08/17 16:12 Source: EMS, RN notes reviewed, old records reviewed Mode of arrival: EMS Limitations: altered mental status, physical limitation - History of Present Illness Initial comments: This is a 71-year-old male to the ER for evaluation. Patient was essay for evaluation regarding cardiac arrest. Patient's brought in by EMS status post cardiac arrest 2. Bradycardia PA asystole arrests, patient is full code, patient did have a witnessed arrest by family, EMS was on scene, no cardioversion or defibrillation necessary, patient did respond appendectomy per EMS, otherwise follow code sheet - Related Data Home Medications Medication Instructions Recorded Confirmed Clopidogrel [Plavix] 75 mg PO DAILY 05/31/15 06/09/17 Lisinopril [Zestril] 2.5 mg PO DAILY 05/31/15 06/09/17 Pantoprazole [Protonix] 40 mg PO DAILY 05/31/15 06/09/17 Pirfenidone [Esbriet] 801 mg PO TID 05/31/15 06/09/17 Tamsulosin HCl [Flomax] 0.4 mg PO BID 05/31/15 06/09/17 Finasteride [Proscar] 5 mg PO DAILY 12/24/16 06/09/17 Insulin Aspart [NovoLOG Flexpen] See Protocol SQ ACHS 12/24/16 06/09/17 Insulin Glargine,Hum.rec.anlog 19 unit SQ DAILY 12/24/16 06/09/17 [Lantus Solostar] Multivitamins, Thera [Multivitamin 1 tab PO DAILY 12/24/16 06/09/17 (formulary)] predniSONE 10 mg PO DAILY 12/24/16 06/09/17 ALPRAZolam [Xanax] 0.25 mg PO BID PRN 06/09/17 06/09/17 Citalopram Hydrobromide [CeleXA] 20 mg PO DAILY 06/09/17 06/09/17 Previous Rx's Medication Instructions Recorded Aspirin EC [Ecotrin Low Dose] 81 mg PO DAILY #30 tablet. 06/02/15 Metoprolol Tartrate [Lopressor] 25 mg PO TID #90 tab 06/02/15 Nitroglycerin Sl Tabs [Nitrostat] 0.4 mg SUBLINGUAL Q5M PRN #20 tab 06/02/15 Acetaminophen Tab [Tylenol] 650 mg PO Q4HR PRN tab 06/11/17 Atorvastatin [Lipitor] 40 mg PO HS #30 tab 06/11/17 Isosorbide Mononitrate ER [Imdur] 60 mg PO DAILY #30 tab.er.24h 06/11/17 Allergies Allergy/AdvReac Type Severity Reaction Status Date / Time No Known Allergies Allergy Verified 07/08/17 17:06 Review of Systems ROS Statement: Those systems with pertinent positive or pertinent negative responses have been documented in the HPI. ROS Other: All systems not noted in ROS Statement are negative. 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, prostate cancer, right carotid artery stenosis, diabetes mellitus, compression fracture of the thoracic spine, myasthenia gravis in remission since 1982, chronic back pain, chronic hip pain, osteoporosis, hyperlipidemia History of Any Multi-Drug Resistant Organisms: None Reported Past Surgical History: Cholecystectomy, Coronary Bypass/CABG, Heart Catheterization With Stent, Tonsillectomy Additional Past Surgical History / Comment(s): CABG 11-29-12 at [facility], heart cath/stent to rca 2012 and feb 2015 heart cath stent to distal LAD total of 12 sx on evans hips (4 replacments and reconstructions), thymus removed, evans cataracts Additional Past Anesthesia/Blood Transfusion Reaction / Comment(s): past blood transfusion 1982-no reaction Date of Last Stent Placement:: [id number] Past Psychological History: No Psychological Hx Reported Smoking Status: Former smoker Past Alcohol Use History: Unable to Obtain Past Drug Use History: Unable to Obtain - Past Family History Mother Family Medical History: Congestive Heart Failure (CHF), Diabetes Mellitus Additional Family Medical History / Comment(s): pts maternal grandmother had dm Father Family Medical History: Cancer Additional Family Medical History / Comment(s): lung cancer Sister(s) Family Medical History: Diabetes Mellitus General Exam Limitations: altered mental status, physical limitation General appearance: obtunded Head exam: Present: atraumatic, normocephalic, normal inspection Eye exam: Present: other (Pupils fixed and dilated). Absent: scleral icterus, conjunctival injection, periorbital swelling ENT exam: Present: normal exam, mucous membranes moist Neck exam: Present: normal inspection. Absent: tenderness, meningismus, lymphadenopathy Respiratory exam: Present: normal lung sounds bilaterally. Absent: respiratory distress, wheezes, rales, rhonchi, stridor Cardiovascular Exam: Present: regular rate, normal rhythm, normal heart sounds. Absent: systolic murmur, diastolic murmur, rubs, gallop, clicks GI/Abdominal exam: Present: soft, normal bowel sounds. Absent: distended, tenderness, guarding, rebound, rigid Extremities exam: Present: normal inspection, full ROM, normal capillary refill. Absent: tenderness, pedal edema, joint swelling, calf tenderness Back exam: Present: normal inspection Neurological exam: Present: alert, oriented X3, CN II-XII intact Psychiatric exam: Present: normal affect, normal mood Skin exam: Present: warm, dry, intact, normal color. Absent: rash Course Vital Signs 07/08/17 07/08/17 16:06 19:00 Temperature 97.0 F L Pulse Rate 60 0 L Respiratory 10 L 0 L Rate O2 Sat by Pulse 99 Oximetry - Reevaluation(s) Reevaluation #1: 1630 Spoke with family at length regarding patient's grave condition, they are aware , wish to do no further CPR 1900 patient with apnea, asystole, pupils fixed and dilated Reevaluation #2: [address] Leavitt regarding patient's condition, Dr. Handy is aware of patient's grave condition 07/08/17 20:46 Spoke with medical lab director, body is released EKG Findings - EKG Comments: EKG Findings:: EKG shows normal sinus rate of 60, TN 202, QRS 174, QTc 469 Procedures - Central Line Placement Right IJ Consent Obtained: verbal consent Time Out Performed: Yes Patient Placed on Monitor/Pulse Ox: Yes MD Prep: mask, gown, gloves Local Anesthesia Used: Lidocaine 1% Ultrasound Used for Placement: Yes Central Line Lumen Inserted: triple Bloods Obtained for Lab: Yes Central Line Position: good blood return, all ports aspirated, flushed, capped Dressing Applied: Tegaderm Post Procedure X-Ray: tip of catheter in good position Patient Tolerated Procedure: well Complications: none Medical Decision Making - Medical Decision Making 71 male the ER for evaluation, patient given cardiopulmonary arrest likely hypoxia is with cardiac arrest, patient was resuscitated with ACLS protocol, patient did have return of spontaneous pain in circulation 6, patient eventually had no more reserved, patient did pass. Patient's time of is 1900 - Lab Data Result diagrams: 07/08/17 16:20 07/08/17 16:20 Lab Results 07/08/17 07/08/17 07/08/17 Range/Units 16:20 16:20 16:20 WBC 11.5 H (3.8-10.6) k/uL RBC 4.61 (4.30-5.90) m/uL Hgb 13.4 (13.0-17.5) gm/dL Hct 43.8 (39.0-53.0) % MCV 95.0 D (80.0-100.0) fL MCH 29.0 (25.0-35.0) pg MCHC 30.6 L (31.0-37.0) g/dL RDW 13.5 (11.5-15.5) % Plt Count 206 (150-450) k/uL Neutrophils % 55 % Lymphocytes % 39 % Monocytes % 4 % Eosinophils % 1 % Basophils % 1 % Neutrophils # 6.3 (1.3-7.7) k/uL Lymphocytes # 4.4 (1.0-4.8) k/uL Monocytes # 0.4 (0-1.0) k/uL Eosinophils # 0.1 (0-0.7) k/uL Basophils # 0.1 (0-0.2) k/uL Hypochromasia Moderate PT (9.0-12.0) sec INR (<1.2) APTT (22.0-30.0) sec D-Dimer (<0.60) mg/L FEU VBG pH (7.31-7.41) VBG pCO2 (37-51) mmHg VBG HCO3 (24-28) mmol/L Sodium 134 L (137-145) mmol/L Potassium 4.6 (3.5-5.1) mmol/L Chloride 96 L (98-107) mmol/L Carbon Dioxide 14 L (22-30) mmol/L Anion Gap 24 mmol/L BUN 18 (9-20) mg/dL Creatinine 1.00 (0.66-1.25) mg/dL Est GFR (CKD-EPI)AfAm 87 (>60 ml/min/1.73 sqM) Est GFR (CKD-EPI)NonAf 75 (>60 ml/min/1.73 sqM) Glucose 426 H (74-99) mg/dL POC Glucose (mg/dL) (75-99) mg/dL POC Glu Optical Technician ID Lactic Ac Sepsis Rflx Plasma Lactic Acid Hiram (0.7-2.0) mmol/L Calcium 8.3 L (8.4-10.2) mg/dL Phosphorus 10.3 H* (2.5-4.5) mg/dL Magnesium 2.4 H (1.6-2.3) mg/dL Total Bilirubin 0.3 (0.2-1.3) mg/dL AST 316 H (17-59) U/L ALT 237 H (21-72) U/L Alkaline Phosphatase 144 H (38-126) U/L Total Creatine Kinase 68 (55-170) U/L CK-MB (CK-2) 1.3 (0.0-2.4) ng/mL CK-MB (CK-2) Rel Index 1.9 Troponin I 0.017 (0.000-0.034) ng/mL NT-Pro-B Natriuret Pep pg/mL Total Protein 4.8 L (6.3-8.2) g/dL Albumin 2.9 L (3.5-5.0) g/dL Urine Color Urine Appearance (Clear) Urine pH (5.0-8.0) Ur Specific [place] (1.001-1.035) Urine Protein (Negative) Urine Glucose (UA) (Negative) Urine Ketones (Negative) Urine Blood (Negative) Urine Nitrite (Negative) Urine Bilirubin (Negative) Urine Urobilinogen (<2.0) mg/dL Ur Leukocyte Esterase (Negative) Urine RBC (0-5) /hpf Urine WBC (0-5) /hpf Ur Squamous Epith Cells (0-4) /hpf Urine Mucus (None) /hpf 04/26/18 04/26/18 04/26/18 Range/Units 16:20 16:20 16:20 WBC (3.8-10.6) k/uL RBC (4.30-5.90) m/uL Hgb (13.0-17.5) gm/dL Hct (39.0-53.0) % MCV (80.0-100.0) fL MCH (25.0-35.0) pg MCHC (31.0-37.0) g/dL RDW (11.5-15.5) % Plt Count (150-450) k/uL Neutrophils % % Lymphocytes % % Monocytes % % Eosinophils % % Basophils % % Neutrophils # (1.3-7.7) k/uL Lymphocytes # (1.0-4.8) k/uL Monocytes # (0-1.0) k/uL Eosinophils # (0-0.7) k/uL Basophils # (0-0.2) k/uL Hypochromasia PT 11.4 (9.0-12.0) sec INR 1.2 H (<1.2) APTT 31.1 H (22.0-30.0) sec D-Dimer 26.22 H (<0.60) mg/L FEU VBG pH (7.31-7.41) VBG pCO2 (37-51) mmHg VBG HCO3 (24-28) mmol/L Sodium (137-145) mmol/L Potassium (3.5-5.1) mmol/L Chloride (98-107) mmol/L Carbon Dioxide (22-30) mmol/L Anion Gap mmol/L BUN (9-20) mg/dL Creatinine (0.66-1.25) mg/dL Est GFR (CKD-EPI)AfAm (>60 ml/min/1.73 sqM) Est GFR (CKD-EPI)NonAf (>60 ml/min/1.73 sqM) Glucose (74-99) mg/dL POC Glucose (mg/dL) (75-99) mg/dL POC Glu Optical Technician ID Lactic Ac Sepsis Rflx Plasma Lactic Acid Hiram 15.7 H* (0.7-2.0) mmol/L Calcium (8.4-10.2) mg/dL Phosphorus (2.5-4.5) mg/dL Magnesium (1.6-2.3) mg/dL Total Bilirubin (0.2-1.3) mg/dL AST (17-59) U/L ALT (21-72) U/L Alkaline Phosphatase (38-126) U/L Total Creatine Kinase (55-170) U/L CK-MB (CK-2) (0.0-2.4) ng/mL CK-MB (CK-2) Rel Index Troponin I (0.000-0.034) ng/mL NT-Pro-B Natriuret Pep 2530 pg/mL Total Protein (6.3-8.2) g/dL Albumin (3.5-5.0) g/dL Urine Color Urine Appearance (Clear) Urine pH (5.0-8.0) Ur Specific [place] (1.001-1.035) Urine Protein (Negative) Urine Glucose (UA) (Negative) Urine Ketones (Negative) Urine Blood (Negative) Urine Nitrite (Negative) Urine Bilirubin (Negative) Urine Urobilinogen (<2.0) mg/dL Ur Leukocyte Esterase (Negative) Urine RBC (0-5) /hpf Urine WBC (0-5) /hpf Ur Squamous Epith Cells (0-4) /hpf Urine Mucus (None) /hpf 07/08/17 07/08/17 07/08/17 Range/Units 16:20 16:28 16:40 WBC (3.8-10.6) k/uL RBC (4.30-5.90) m/uL Hgb (13.0-17.5) gm/dL Hct (39.0-53.0) % MCV (80.0-100.0) fL MCH (25.0-35.0) pg MCHC (31.0-37.0) g/dL RDW (11.5-15.5) % Plt Count (150-450) k/uL Neutrophils % % Lymphocytes % % Monocytes % % Eosinophils % % Basophils % % Neutrophils # (1.3-7.7) k/uL Lymphocytes # (1.0-4.8) k/uL Monocytes # (0-1.0) k/uL Eosinophils # (0-0.7) k/uL Basophils # (0-0.2) k/uL Hypochromasia PT (9.0-12.0) sec INR (<1.2) APTT (22.0-30.0) sec D-Dimer (<0.60) mg/L FEU VBG pH 6.90 L* (7.31-7.41) VBG pCO2 88 H* (37-51) mmHg VBG HCO3 17 L (24-28) mmol/L Sodium (137-145) mmol/L Potassium (3.5-5.1) mmol/L Chloride (98-107) mmol/L Carbon Dioxide (22-30) mmol/L Anion Gap mmol/L BUN (9-20) mg/dL Creatinine (0.66-1.25) mg/dL Est GFR (CKD-EPI)AfAm (>60 ml/min/1.73 sqM) Est GFR (CKD-EPI)NonAf (>60 ml/min/1.73 sqM) Glucose (74-99) mg/dL POC Glucose (mg/dL) 297 H (75-99) mg/dL POC Glu Optical Technician ID Lactic Ac Sepsis Rflx Plasma Lactic Acid Hiram (0.7-2.0) mmol/L Calcium (8.4-10.2) mg/dL Phosphorus (2.5-4.5) mg/dL Magnesium (1.6-2.3) mg/dL Total Bilirubin (0.2-1.3) mg/dL AST (17-59) U/L ALT (21-72) U/L Alkaline Phosphatase (38-126) U/L Total Creatine Kinase (55-170) U/L CK-MB (CK-2) (0.0-2.4) ng/mL CK-MB (CK-2) Rel Index Troponin I (0.000-0.034) ng/mL NT-Pro-B Natriuret Pep pg/mL Total Protein (6.3-8.2) g/dL Albumin (3.5-5.0) g/dL Urine Color Yellow Urine Appearance Clear (Clear) Urine pH 6.0 (5.0-8.0) Ur Specific [place] 1.016 (1.001-1.035) Urine Protein Negative (Negative) Urine Glucose (UA) 4+ H (Negative) Urine Ketones Negative (Negative) Urine Blood Moderate H (Negative) Urine Nitrite Negative (Negative) Urine Bilirubin Negative (Negative) Urine Urobilinogen <2.0 (<2.0) mg/dL Ur Leukocyte Esterase Negative (Negative) Urine RBC >182 H (0-5) /hpf Urine WBC 9 H (0-5) /hpf Ur Squamous Epith Cells <1 (0-4) /hpf Urine Mucus Rare H (None) /hpf 07/08/17 Range/Units 17:03 WBC (3.8-10.6) k/uL RBC (4.30-5.90) m/uL Hgb (13.0-17.5) gm/dL Hct (39.0-53.0) % MCV (80.0-100.0) fL MCH (25.0-35.0) pg MCHC (31.0-37.0) g/dL RDW (11.5-15.5) % Plt Count (150-450) k/uL Neutrophils % % Lymphocytes % % Monocytes % % Eosinophils % % Basophils % % Neutrophils # (1.3-7.7) k/uL Lymphocytes # (1.0-4.8) k/uL Monocytes # (0-1.0) k/uL Eosinophils # (0-0.7) k/uL Basophils # (0-0.2) k/uL Hypochromasia PT (9.0-12.0) sec INR (<1.2) APTT (22.0-30.0) sec D-Dimer (<0.60) mg/L FEU VBG pH (7.31-7.41) VBG pCO2 (37-51) mmHg VBG HCO3 (24-28) mmol/L Sodium (137-145) mmol/L Potassium (3.5-5.1) mmol/L Chloride (98-107) mmol/L Carbon Dioxide (22-30) mmol/L Anion Gap mmol/L BUN (9-20) mg/dL Creatinine (0.66-1.25) mg/dL Est GFR (CKD-EPI)AfAm (>60 ml/min/1.73 sqM) Est GFR (CKD-EPI)NonAf (>60 ml/min/1.73 sqM) Glucose (74-99) mg/dL POC Glucose (mg/dL) (75-99) mg/dL POC Glu Optical Technician ID Lactic Ac Sepsis Rflx Y Plasma Lactic Acid Hiram (0.7-2.0) mmol/L Calcium (8.4-10.2) mg/dL Phosphorus (2.5-4.5) mg/dL Magnesium (1.6-2.3) mg/dL Total Bilirubin (0.2-1.3) mg/dL AST (17-59) U/L ALT (21-72) U/L Alkaline Phosphatase (38-126) U/L Total Creatine Kinase (55-170) U/L CK-MB (CK-2) (0.0-2.4) ng/mL CK-MB (CK-2) Rel Index Troponin I (0.000-0.034) ng/mL NT-Pro-B Natriuret Pep pg/mL Total Protein (6.3-8.2) g/dL Albumin (3.5-5.0) g/dL Urine Color Urine Appearance (Clear) Urine pH (5.0-8.0) Ur Specific [place] (1.001-1.035) Urine Protein (Negative) Urine Glucose (UA) (Negative) Urine Ketones (Negative) Urine Blood (Negative) Urine Nitrite (Negative) Urine Bilirubin (Negative) Urine Urobilinogen (<2.0) mg/dL Ur Leukocyte Esterase (Negative) Urine RBC (0-5) /hpf Urine WBC (0-5) /hpf Ur Squamous Epith Cells (0-4) /hpf Urine Mucus (None) /hpf - Radiology Data Radiology results: report reviewed (Chest x-rays negative for acute disease), image reviewed Disposition Clinical Impression: Acute myocardial infarction, Cardiac arrest Disposition: Is patient prescribed a controlled substance at d/c from ED?: No Referrals: Hal Van MD [Primary Care Provider] - 1-2 days Preliminary Cause of : CPA,Hypoxia
[2017-07-08 19:44] VITALS: PULSE 0; RESP 0
== END 2017-07-08 19:44 | disposition expired ==
LOC: EC 16:06
DX: I46.9 Cardiac arrest, cause unspecified (principal); I21.9 Acute myocardial infarction, unspecified; I25.119 Atherosclerotic heart disease of native coronary artery with unspecified angina pectoris; E11.9 Type 2 diabetes mellitus without complications; K21.9 Gastro-esophageal reflux disease without esophagitis; I10 Essential (primary) hypertension; G70.00 Myasthenia gravis without (acute) exacerbation; I25.2 Old myocardial infarction; J96.11 Chronic respiratory failure with hypoxia; N42.9 Disorder of prostate, unspecified; Z85.46 Personal history of malignant neoplasm of prostate; Z87.891 Personal history of nicotine dependence; Z79.01 Long term (current) use of anticoagulants; Z79.52 Long term (current) use of systemic steroids; Z79.899 Other long term (current) drug therapy; Z79.4 Long term (current) use of insulin; Z95.5 Presence of coronary angioplasty implant and graft; Z82.49 Family history of ischemic heart disease and other diseases of the circulatory system
CPT/HCPCS: 43753; 36415; 94002; 93005; 85379; 83880; 80053; 82550; 82553; 82803; 83605; 83735; 84100; 84484; 85025; 85610; 85730; 81001; 87086; 71045; 99285; 36556; 92950; 51702; 96365; 96366; 96375; 96376; 96361; J2930